=== PATIENT | male | born 1980 | race Caucasian/White ===

== ENCOUNTER 2020-08-07 01:13 | Emergency (ER) | payer OTHER ==
[~2020-08-07] VITALS: Ht 185.4 cm; Wt 124.7 kg
[2020-08-07] MEDS ORDERED: METFORMIN HCL500 M3 PO (01:26)
[2020-08-07] MEDS ORDERED: VASOTEC10 MG PO (01:26)
[2020-08-07] MEDS ORDERED: PIOGLITAZONE30 MG PO (01:32)
[2020-08-07 03:12] LABS: URINE BILIRUBIN NEGATIVE (Negative); URINE BLOOD NEGATIVE (Negative); URINE CLARITY CLEAR; URINE COLOR YELLOW; URINE GLUCOSE-RANDOM 3+ (Negative); URINE KETONES NEGATIVE (Negative); URINE LEUKOCYTES-REFLEX NEGATIVE (Negative); URINE NITRITE-REFLEX NEGATIVE (Negative); URINE PROTEIN NEGATIVE (Negative); URINE UROBILINOGEN 0.2 E.U./dl (0.2-1.0)
[2020-08-07] MEDS ORDERED: MEDROLDOSEPACK PO (03:13)
[2020-08-07] MEDS ORDERED: TORADOL 10 MG T10 MG PO (03:13)
[2020-08-07] MEDS ORDERED: CYCLOBENZAPRINE5 MG PO (03:13)
[2020-08-07 03:31] VITALS: BP 155/97
== END 2020-08-07 03:31 | disposition home or self-care (01) ==
LOC: M.ERS 01:13
PROVIDERS: Personal Emergency Response Attendant
DX: M54.42 Lumbago with sciatica, left side (principal); I10 Essential (primary) hypertension; E11.9 Type 2 diabetes mellitus without complications; J45.909 Unspecified asthma, uncomplicated; Z79.899 Other long term (current) drug therapy; Z88.1 Allergy status to other antibiotic agents